=== PATIENT | female | born 1965 | race African-American/Black ===

== ENCOUNTER 2021-08-23 13:06 | Observation (INO) | payer MEDICARE ==
[2021-08-23 13:35] VITALS: BMI 47.0
[2021-08-23] MEDS ORDERED: Ondansetron ODT 4 MG TAB PO PRN (14:52)
[2021-08-23] MEDS ORDERED: Ondansetron PF 4 MG/2 ML Vial IVP PRN (14:52)
[2021-08-23] MEDS ORDERED: Acetaminophen 325 MG TAB PO PRN (14:52)
[2021-08-23] MEDS ORDERED: Acetaminophen 650 MG Suppository PR PRN (14:52)
[2021-08-23] MEDS ORDERED: hydrALAZINE 20 MG/ML VIAL SLOW IVP PRN (15:29)
[2021-08-23] MEDS ORDERED: HumaLOG 300 UNITS/3 ML VIAL SC PRN ×2 (16:22)
[2021-08-23] MEDS ORDERED: Dextrose 50% Abboject 50 ML SYRINGE SLOW IVP PRN (16:22)
[2021-08-23] MEDS ORDERED: Dextrose 5% in Water 1,000 ML IV PRN (16:22)
[2021-08-23 16:23] LABS: Troponin I Less than 0.010 ng/mL (< 0.028)
[2021-08-23] MEDS: Ibuprofen 600 MG TAB PO SCH ×2 (17:17→23:54)
[2021-08-23] MEDS: Carvedilol 12.5 MG TAB PO SCH (17:17)
[2021-08-23 18:20] LABS: Troponin I 0.013 ng/mL (< 0.028)
[2021-08-23] MEDS ORDERED: diphenhydrAMINE 50 MG/ML VIAL IVP SCH (18:45)
[2021-08-23] MEDS: Nitroglycerin 2% Ointment 1 INCH/1 GM Packet TOP SCH (22:09)
[2021-08-24 04:30] LABS: #Eosinphils 0.1 10x3/uL (0.0-0.5); #Monocytes 0.6 10x3/uL (0.0-1.1); #Neutrophils 2.8 10x3/uL (1.5-8.4); %Basophils 0.2 % (0.0-2.0); %Eosinophils 2.6 % (0.0-6.0); %Lymphocytes 35.1 % (18.0-47.0); %Monocytes 10.6 % (0.0-10.0); %Neutrophils 51.3 % (40.0-75.0); Hemoglobin 10.8 g/dL (12.0-15.5); Mean Corpuscular HGB CONC 31.3 g/dL (32.0-36.0); Mean Corpuscular Hemoglobin 25.9 pg (27.0-33.0); Mean Corpuscular Volume 82.7 fl (81.6-98.3); Mean Platelet Volume 9.7 fl (7.4-10.4); Platelet Count 315 10x3/uL (150-450); RBC Distribution Width 13.9 % (11.5-14.5); Red Blood Cell (RBC) Count 4.17 10x6/uL (3.90-5.03); White Blood Cell (WBC) Count 5.4 10x3/uL (3.5-10.5)
[2021-08-24 04:39] LABS: Anion Gap 11 mmol/L (10-20); BUN (Urea Nitrogen) 12 mg/dL (9.8-20.1); Calc. Creatinine Clearance 190 mL/min (70-130); Calcium 8.8 mg/dL (7.8-10.44); Carbon Dioxide 28 mmol/L (22-29); Cardiac Risk 3.7 (Less than 4.5); Chloride 107 mmol/L (98-107); Cholesterol 151 mg/dl (< 200 Desired); Glucose 110 mg/dL (70-105); HDL Cholesterol 41 mg/dL (>60 Neg Risk); LDL Cholesterol, Calculated 94 mg/dL; Potassium 3.9 mmol/L (3.5-5.1); Sodium 142 mmol/L (136-145); Triglycerides 79 mg/dL (Less than 150)
[2021-08-24] MEDS: Nitroglycerin 2% Ointment 1 INCH/1 GM Packet TOP SCH (05:34)
[2021-08-24 08:00] LABS: SARS-CoV-2 PCR by NAA Not Detected (NotDetected)
[2021-08-24] MEDS ORDERED: Ferrous Sulfate 325 MG TAB PO SCH (08:00)
[2021-08-24] MEDS: Ibuprofen 600 MG TAB PO SCH (08:55)
[2021-08-24] MEDS: Carvedilol 12.5 MG TAB PO SCH (08:56)
[2021-08-24] MEDS ORDERED: Gabapentin 300 MG CAP PO SCH (09:00)
[2021-08-24] MEDS ORDERED: DULoxetine 30 MG CAP PO SCH (09:00)
[2021-08-24] MEDS ORDERED: Lisinopril 20 MG TAB PO SCH (09:00)
[2021-08-24] MEDS ORDERED: Cyclobenzaprine 10 MG TAB PO SCH (09:00)
[2021-08-24] MEDS ORDERED: hydrALAZINE 25 MG TAB PO SCH (09:00)
[2021-08-24] MEDS ORDERED: Lisdexamfetamine Dimesylate 20 MG CAPSULE PO SCH (09:00)
[2021-08-24] MEDS ORDERED: Furosemide 20 MG TAB PO SCH (09:00)
[2021-08-24] MEDS ORDERED: Aspirin Chewable 81 MG TAB PO SCH (09:00)
[2021-08-24 12:26] VITALS: BP 149/81; TEMP 98.1
[2021-08-24] MEDS ORDERED: Mometasone 100 MCG/PUFF (1 INHALER) INH SCH (18:30)
[2021-08-24] MEDS ORDERED: Montelukast Sodium 10 mg Tablet PO SCH (21:00)
== END 2021-08-24 13:14 | disposition home or self-care (01) ==
LOC: CSHTELE 13:06
PROVIDERS: ADMIT Family Medicine; ATTEND Physician Assistant
DX: R07.89 Other chest pain (principal); I16.0 Hypertensive urgency; I25.10 Atherosclerotic heart disease of native coronary artery without angina pectoris; I42.8 Other cardiomyopathies; E78.5 Hyperlipidemia, unspecified; E11.9 Type 2 diabetes mellitus without complications; Z79.899 Other long term (current) drug therapy; Z79.84 Long term (current) use of oral hypoglycemic drugs; Z79.82 Long term (current) use of aspirin; G47.33 Obstructive sleep apnea (adult) (pediatric); E66.01 Morbid (severe) obesity due to excess calories; Z20.822 Contact with and (suspected) exposure to COVID-19
CPT/HCPCS: 80048; 80061; 82962 ×2; 84484; 85025; 93005; 94760; G0378 ×2; U0003; U0005; 36415; 36416; 93010

== ENCOUNTER 2023-06-15 08:12 | Emergency (ER) | payer MEDICARE ==
[2023-06-15 08:56] LABS: #Eosinphils 0.2 10x3/uL (0.0-0.5); #Monocytes 0.5 10x3/uL (0.0-1.1); #Neutrophils 2.5 10x3/uL (1.5-8.4); %Basophils 0.3 % (0.0-2.0); %Eosinophils 3.1 % (0.0-6.0); %Lymphocytes 45.4 % (18.0-47.0); %Monocytes 8.7 % (0.0-10.0); %Neutrophils 42.2 % (40.0-75.0); Hematocrit 36.7 % (34.9-44.5); Hemoglobin 11.8 g/dL (12.0-15.5); Mean Corpuscular HGB CONC 32.2 g/dL (32.0-36.0); Mean Corpuscular Hemoglobin 26.9 pg (27.0-33.0); Mean Corpuscular Volume 83.8 fl (81.6-98.3); Mean Platelet Volume 9.6 fl (7.4-10.4); Platelet Count 309 10x3/uL (150-450); RBC Distribution Width 12.8 % (11.5-14.5); Red Blood Cell (RBC) Count 4.38 10x6/uL (3.90-5.03); White Blood Cell (WBC) Count 5.8 10x3/uL (3.5-10.5)
[2023-06-15] MEDS ORDERED: Morphine 4 MG/ML VIAL ONE (09:02)
[2023-06-15] MEDS ORDERED: Ondansetron PF 4 MG/2 ML Vial ONE (09:02)
[2023-06-15 09:14] LABS: ALT (SGPT) 16 U/L (8-55); AST (SGOT) 16 U/L (5-34); Albumin 3.9 g/dL (3.5-5.0); Alkaline Phosphatase 96 U/L (40-110); Anion Gap 17 mmol/L (10-20); BUN (Urea Nitrogen) 8 mg/dL (9.8-20.1); Bilirubin, Total 0.3 mg/dL (0.2-1.2); Calc. Creatinine Clearance 0 mL/min (70-130); Calcium 8.6 mg/dL (7.8-10.44); Carbon Dioxide 25 mmol/L (22-29); Chloride 103 mmol/L (98-107); Estimated GFR 98; Globulin 3.1 g/dL (2.4-3.5); Glucose 106 mg/dL (70-105); Lipase 20 U/L (8-78); Magnesium 1.9 mg/dL (1.6-2.6); Potassium 4.8 mmol/L (3.5-5.1); Sodium 140 mmol/L (136-145)
[2023-06-15 09:20] LABS: Troponin I Less than 0.010 ng/mL (< 0.028)
[2023-06-15] MEDS ORDERED: HYDROmorphone 0.5 MG/0.5 ML SYRINGE ONE (11:20)
[2023-06-15] MEDS ORDERED: Iopamidol 300 61% 100 ML VIAL FS ONE (15:47)
== END 2023-06-15 11:44 | disposition home or self-care (01) ==
LOC: CSHERS 08:12
DX: R10.11 Right upper quadrant pain (principal); E11.9 Type 2 diabetes mellitus without complications; E78.5 Hyperlipidemia, unspecified; I11.0 Hypertensive heart disease with heart failure; I50.9 Heart failure, unspecified
CPT/HCPCS: 36416; 71045; 74177; 80053; 83690; 83735; 84484; 85025; 93005; 96374; 96375; J1170; J2270; J2405; Q9967